=== PATIENT | female | born 1940 | race Hispanic/Latino ===

== ENCOUNTER → 2020-07-05 | Outpatient (CLI) | payer MEDICARE ==
[~2020-07-05] MED LIST: REGADENOSON 0.4 MG/5 ML SYR IV ONE
--- NOTE | 2020-07-06 10:08 | Myoview Stress Test ---
DATE OF STUDY: 07/05/2020 08:48:00 Stress Test - Treadmill ONLY PROCEDURE TITLE: Rest/stress single isotope SPECT imaging with pharmacologic stress and gated SPECT imaging. INDICATION: Coronary artery disease. PROCEDURE IN DETAIL: Pharmacologic stress testing was performed with regadenoson per protocol. The heart rate was 69 beats per minute at rest, increased to 109 beats per minute during the regadenoson infusion. The resting blood pressure was 134/64 mmHg and decreased to 124/56 mmHg, which is a normal response. The resting electrocardiogram demonstrated normal sinus rhythm. There were no ST-segment changes suggestive of myocardial ischemia. Myocardial perfusion imaging was performed at rest following the injection of 11 mCi of tetrofosmin. At peak pharmacologic effect, the patient was injected with 32.9 mCi of tetrofosmin. Gated post-stress tomographic imaging was performed. FINDINGS: The overall quality of study is fair. Left ventricular cavity is noted to be normal size on the rest and stress studies. SPECT images demonstrate homogeneous tracer distribution throughout the myocardium. Gated SPECT imaging reveals normal myocardial thickening and wall motion. The left ventricular ejection fraction was calculated to be greater than 70%. CONCLUSION: Myocardial perfusion imaging is normal. Overall, left ventricular systolic function was normal without regional wall motion abnormalities. Sonya Singh MD ABS/MODL /[id number]
== END ==
LOC: NM 08:31
PROVIDERS: ATTEND Internal Medicine
DX: Z01.818 Encounter for other preprocedural examination (principal)
CPT/HCPCS: 78452; 93017; 93306; A9502; J2785

== ENCOUNTER 2020-10-02 07:23 | Observation (INO) | payer MEDICARE, OTHER ==
--- NOTE | 2020-09-28 16:21 | Diagnostic Imaging Report ---
Chest, 2 views, 09/28/2020. History: Preop, humerus surgery. Comparison: None available. Findings: The patient is rotated. The cardiomediastinal silhouette and pulmonary vasculature are within normal limits. There is tortuosity of the descending thoracic aorta. The lungs are clear without evidence of consolidation or pleural effusion. Fracture of the left proximal humerus is noted. The bones are diffusely osteopenic. Degenerative changes are present throughout the thoracic spine. Impression: No acute cardiopulmonary abnormality. Proximal left humeral fracture. Signed by: Migue Eastman on 09/28/2020 4:18 PM
[2020-09-28 16:47] LABS: BASOPHILS % 0.2 % (0.0-1.0); EOSINOPHILS # (AUTO) 0.1 (0.0-0.4); EOSINOPHILS % 1.7 % (0.0-6.0); HEMATOCRIT 41.8 % (34.2-44.1); HEMOGLOBIN 13.5 g/dL (12.0-16.0); LYMPHOCYTES # (AUTO) 1.4 (1.0-3.2); LYMPHOCYTES % 17.3 % (18.0-39.1); MEAN CORPUSCULAR HEMOGLOBIN 29.9 pg (28-32); MEAN CORPUSCULAR HGB CONC 32.3 g/dL (31-35); MEAN CORPUSCULAR VOLUME 92.7 fL (81-99); MONOCYTES # (AUTO) 0.5 (0.2-0.8); MONOCYTES % 6.3 % (4.4-11.3); NEUTROPHILS # (AUTO) 6.1 (2.1-6.9); NEUTROPHILS % 74.3 % (38.7-80.0); PLATELET COUNT 210 x10e3/uL (140-360); RED BLOOD COUNT 4.51 x10e6/uL (3.6-5.1); RED CELL DISTRIBUTION WIDTH 13.7 % (11.7-14.4)
[2020-09-28 17:25] LABS: ANION GAP 15.3 mmol/L (8-16); BLOOD UREA NITROGEN 16 mg/dL (7-26); BUN/CREATININE RATIO 21 (6-25); CARBON DIOXIDE 26 mmol/L (22-29); CHLORIDE 105 mmol/L (98-107); CREATININE, SERUM 0.77 mg/dL (0.57-1.11); EST GLOMERULAR FILTRATION RATE > 60 ML/MIN (60-); GLUCOSE 139 mg/dL (74-118); POTASSIUM 4.3 mmol/L (3.5-5.1); SODIUM 142 mmol/L (136-145)
[~2020-10-02] VITALS: Ht 154.9 cm; Wt 63.0 kg
[~2020-10-02 07:23] MED LIST changes: +AMLODIPINE BESY10 MG PO; +GLIPIZIDE5 MG PO; +IBUPROFEN200 MG PO; +LOSARTAN POTAS100 MG PO; +METFORMIN HCL500 MG PO; +NAMENDA5 MG PO; +PRAVACHOL40 MG PO; -REGADENOSON 0.4 MG/5 ML SYR IV ONE
[2020-10-02] MEDS ORDERED: CEFAZOLIN SOD 1 GM/NS 50ML 50 ML IV ONE (08:13)
[2020-10-02] MEDS ORDERED: BUPIVACAINE HCL 0.5% INJ 30 ML VIAL INJ ONE (09:56)
[2020-10-02] MEDS ORDERED: ONDANSETRON HCL INJ 2MG/ML 2ML 2 MG/ML VIAL IV PRN (11:00)
[2020-10-02] MEDS ORDERED: HYDROCODONE/APAP 7.5MG-325MG 1 EA TAB PO PRN (11:00)
[2020-10-02] MEDS ORDERED: KETOROLAC TROMETHAMINE 30 MG/ML VIAL IV PRN (11:00)
[2020-10-02] MEDS ORDERED: ACETAMINOPHEN 650 MG SUPP PR PRN (11:00)
[2020-10-02] MEDS ORDERED: DIPHENHYDRAMINE HCL INJ 50 MG/ML VIAL IV PRN (11:00)
[2020-10-02] MEDS ORDERED: HYDROCODONE/APAP 5MG-325MG TAB PO PRN (11:00)
[2020-10-02] MEDS ORDERED: DOCUSATE SODIUM 100 MG CAP PO PRN (11:00)
[2020-10-02] MEDS ORDERED: ACETAMINOPHEN 1000 MG/100 ML 100 ML IV ONE (11:29)
[2020-10-02] MEDS ORDERED: FENTANYL CITRATE/PF 100MCG/2 ML INJ ONE ×2 (11:29→16:30)
--- NOTE | 2020-10-02 11:36 | Operative Report ---
DATE OF PROCEDURE: 10/02/2020 SURGEON: Mata Wells MD INTERNATIONAL ACCOUNT MANAGER: Alphonse Park PA-C. PREOPERATIVE DIAGNOSIS: Left proximal humerus fracture, nonunion. POSTOPERATIVE DIAGNOSIS: Left proximal humerus fracture, nonunion. PROCEDURE: Left proximal humerus debridement of nonunion with open reduction and internal fixation. INDICATION: The patient is a medically frail 79-year-old lady who has sustained a severe fracture of her left proximal humerus. This happened several months ago. She has some dementia and cannot remember exactly how this broke it. We have tried to treat this conservatively, but this has gone on to develop an obvious nonunion with gross motion. We have discussed the options and planned on open reduction with internal fixation. The risks and benefits were discussed with the family. They stated they understood and wished to proceed. PROCEDURE IN DETAIL: The patient was brought to the operating room and placed under general anesthetic. She was positioned on the shoulder table in the beach chair position. She received prophylactic antibiotics in the holding area. Her left upper extremity was prepped and draped in a sterile manner. A preoperative time-out was performed. An anterior incision was made. This extended midway down the left arm. Hemostasis was obtained with electrocautery. Self-retaining retractors were placed. The deltopectoral interval was identified. Gentle mobilization of the soft tissue was performed. Care was taken to avoid any injury to the neurovascular bundle. The fracture site was identified. Fibrous tissue was debrided from the site of the nonunion. This was partially excised. Time was spent taking to mobilize the two fracture fragments. Reduction clamps were placed. A Diaz and Nephew side specific proximal humerus plate was then templated on the arm. A nine-hole plate was chosen. A combination of compression cortical screws and locking screws were placed proximally and distally. Nice secure fixation was obtained. Intraoperative x-rays confirmed satisfactory reduction and positioning of all the hardware. The wound was thoroughly irrigated. A 5 mL of the DVX bone putty was then placed around the fracture site. The fascia was closed with interrupted 0 Vicryl. The skin was closed with 2-0 Vicryl and joan. A sterile bandage and a posterior splint were applied. Estimated blood loss was 100 mL. At the end of the procedure, all needle and sponge counts were correct. Mata Wells MD DR/MELANIE /[id number]
--- NOTE | 2020-10-02 11:45 | Diagnostic Imaging Report ---
OR Fluoroscopy: IMPRESSION: Fluoroscopy service provided in the OR. Interpretation not requested. Signed by: Stewart Whitaker MD on 10/02/2020 11:41 AM
[2020-10-02 14:51] VITALS: BP 120/43
[2020-10-02 15:25] VITALS: BP 120/43
[2020-10-02] MEDS: SODIUM CHLORIDE 0.9% 1000ML 1,000 ML IV SCH ×2 (15:30→21:00)
[2020-10-02 15:34] VITALS: BP 130/66
--- NOTE | 2020-10-02 15:48 | NUR ---
RECEIVED REPORT FROM SEBAS ARREOLA. PATIENT ARRIVED TO THE UNIT @ 1412 VIA STRETCHER FROM RECOVERY. PATIENT IN STABLE CONDITION, NO S/S OF DISTRESS NOTED. ABLE TO VOICE NEEDS THAI SPEAKER. DAUGHTER AT BEDSIDE. RESPIRATIONS EVEN AND NONLABORED. IV SITE ASYMPTOMATIC AND PATENT, TRANSPARENT DRESSING C/D/I. SCDs APPLIED. MARTHA WRAP NOTED TO THE LEFT ARM C/D/I. BED ALARM APPLIED. BED IN LOWEST POSITION AND LOCKED, SIDE RAILS X 2, NONSKID SOCKS APPLIED. CALL LIGHT WITHIN REACH.
[2020-10-02] MEDS ORDERED: ACETAMINOPHEN 1000 MG/100 ML IV PRN (16:00)
--- NOTE | 2020-10-02 16:08 | NUR ---
SPOKE WITH ALETA AT DR WELLS OFFICE NO HOME HEALTH OR DME NEEDED FOR DISCHARGE.
[2020-10-02] MEDS: CEFAZOLIN SOD 1 GM/NS 50ML 50 ML IV SCH (17:17)
[2020-10-02] MEDS: CELECOXIB 100 MG CAP PO SCH (17:17)
[2020-10-02] MEDS: ASPIRIN 325 MG TAB PO SCH (17:17)
[2020-10-02] MEDS ORDERED: PROPOFOL IV EMULSION 10 MG/ML 20 ML VIAL ONE (17:29)
[2020-10-02] MEDS ORDERED: LIDOCAINE HCL 2% LOCAL INJ 5 ML SDV VIAL INJ ONE (17:29)
[2020-10-02] MEDS ORDERED: ROCURONIUM BROMIDE 10 MG/ML 5ML VIAL IV ONE (17:29)
[2020-10-02] MEDS ORDERED: KETOROLAC TROMETHAMINE 30 MG/ML VIAL ONE (17:29)
[2020-10-02] MEDS ORDERED: DEXAMETHASONE SOD PHOS INJ 4 MG/ML VIAL ONE (17:29)
[2020-10-02] MEDS ORDERED: SEVOFLURANE INHAL SOLN 250 ML PEN BTL ONE (17:29)
[2020-10-02] MEDS ORDERED: ONDANSETRON HCL INJ 2MG/ML 2ML 2 MG/ML VIAL ONE (17:29)
[2020-10-02] MEDS ORDERED: LORAZEPAM INJ 2 MG/ML VIAL IV PRN (18:30)
--- NOTE | 2020-10-02 19:00 | NUR ---
RECEIVED PATIENT IN BEDSIDE SHIFT REPORT. PATIENT A&OX1, FAMILY MEMBER AT BEDSIDE TO ASSIST PATIENT. PRIOR TO SHIFT, PATIENT MOVED TO ROOM NEXT TO NURSES STATION. BED ALARM ACTIVE. PATIENT REFUSING SCDS. PATIENT TOLERATING PO, SO SALINE LOCKED. R HAND 22G ASYMPTOMATIC. BED LOCKED IN LOWEST POSITION, SIDE RAILS UPX2, CALL LIGHT IN REACH.
--- NOTE | 2020-10-02 19:04 | NUR ---
COMPLETED BEDSIDE SHIFT REPORT AND ROUNDING WITH THE ONCOMING NIGHT NURSE. PATIENT IN STABLE CONDITION, NO S/S OF DISTRESS NOTED. ABLE TO VOICE NEEDS WOLOF SPEAKER. RESPIRATIONS EVEN AND NONLABORED. IV SITE ASYMPTOMATIC AND PATENT, TRANSPARENT DRESSING C/D/I. MARTHA WRAP NOTED TO THE LEFT ARM C/D/I. BED ALARM APPLIED. DAUGHTER AT BEDSIDE. BED IN LOWEST POSITION AND LOCKED, SIDE RAILS X 2, NONSKID SOCKS APPLIED. CALL LIGHT WITHIN REACH.
[2020-10-02 20:20] VITALS: BP 117/67
[2020-10-02 20:21] VITALS: BP 117/67
[2020-10-02] MEDS ORDERED: ZOLPIDEM TARTRATE 5 MG TAB PO PRN (21:00)
[2020-10-02] MEDS ORDERED: DEXTROSE 50% SYRINGE 50 ML IV PRN (21:30)
[2020-10-02] MEDS: INSULIN LISPRO 100 UNIT/1 ML 3ML VIAL SQ SCH (21:45)
[2020-10-03 00:11] VITALS: BP 132/59
[2020-10-03] MEDS: CEFAZOLIN SOD 1 GM/NS 50ML 50 ML IV SCH ×2 (00:15→08:02)
[2020-10-03 04:42] VITALS: BP 126/56
[2020-10-03 05:09] LABS: HEMATOCRIT 31.6 % (34.2-44.1); HEMOGLOBIN 10.4 g/dL (12.0-16.0)
--- NOTE | 2020-10-03 06:34 | Consultation ---
DATE OF CONSULTATION: REASON FOR CONSULTATION: Postop medical management. HISTORY OF PRESENT ILLNESS: The patient is a 79-year-old lady, who is status post left humeral fracture repair, who postoperatively had some issues with some increased agitation, possible sundowning, who has a history of dementia, but currently right now, she has her daughter by the bedside and she seems to be doing much better. PAST MEDICAL HISTORY: Significant for diabetes, dementia, hyperlipidemia, hypertension. MEDICATIONS: See MAR. ALLERGIES: NONE. SOCIAL HISTORY: Nonsmoker and nondrinker. . Retired. FAMILY HISTORY: Noncontributory. PHYSICAL EXAMINATION: VITAL SIGNS: Temperature 97.6, pulse 80, blood pressure 126/56, sats 99% on room air. GENERAL: No apparent distress, lying in bed. NECK: Supple. CARDIOVASCULAR: Regular rate and rhythm. LUNGS: Clear to auscultation bilaterally. ABDOMEN: Good bowel sounds. Soft, nontender. EXTREMITIES: No clubbing or cyanosis. Left arm is in sling. NEUROLOGIC: Nonfocal. Moves all extremities x4. She is alert, appears to be oriented. ASSESSMENT/PLAN: 1. Dementia with possible sundowning, appears to be getting much better, so I instructed the family to stay at her bedside. Usually, it resolves on its own, but we will restart her Namenda. 2. Left humeral fracture repair. Continue postoperative care. 3. Diabetes. Continue current care and monitoring. 4. Hyperlipidemia. We will restart cholesterol medicine. 5. Hypertension. We will restart her blood pressure medicines. Please see hospital chart for full details. MD SHEILA Moore/MELANIE /[id number]
[2020-10-03] MEDS: SODIUM CHLORIDE 0.9% 1000ML 1,000 ML IV SCH (07:00)
--- NOTE | 2020-10-03 07:00 | NUR ---
ASSUMED CARE. AWAKE AND ALERT. RESTING IN BED. NO DISTRESS NOTED. CALL LIGHT IN REACH. SIDE RAILS UP X2. BED LOW AND LOCKED. DAUGHTER PRESENT AT BEDSIDE.
[2020-10-03] MEDS: INSULIN LISPRO 100 UNIT/1 ML 3ML VIAL SQ SCH (07:30)
[2020-10-03 08:00] VITALS: BP 129/56
[2020-10-03] MEDS: ASPIRIN 325 MG TAB PO SCH (08:02)
[2020-10-03] MEDS: CELECOXIB 100 MG CAP PO SCH (08:02)
--- NOTE | 2020-10-03 08:04 | NUR ---
PATIENT'S DAUGHTER AT BEDSIDE AND REFUSED NAMENDA ADMINISTRATION PER PHYSICIAN'S ORDER. "I NORMALLY GIVE THIS MEDICATION TO HER AT NOON. I WANT HER TO HAVE IT AT NOON INSTEAD." EDUCATION PROVIDED. RE-ENFORCEMENT NEEDED.
[2020-10-03 08:57] VITALS: BP 129/56
[2020-10-03] MEDS ORDERED: LOSARTAN POTASSIUM 100 MG TAB PO SCH (09:00)
[2020-10-03] MEDS ORDERED: MEMANTINE 10 MG TAB PO SCH (09:00)
[2020-10-03] MEDS ORDERED: SIMVASTATIN 20 MG TAB PO SCH ×2 (09:00→21:00)
[2020-10-03 12:00] VITALS: BP 123/59
[2020-10-03] MEDS ORDERED: ONDANSETRON HCL 4 MG ORAL DISINTEGRATING TAB PO PRN (12:30)
[2020-10-03] MEDS ORDERED: CELECOXIB 200 MG CAP PO SCH (17:00)
[2020-10-03] MEDS ORDERED: AMLODIPINE BESYLATE 10 MG TAB PO SCH (21:00)
--- OUTSIDE RECORDS SUMMARY | 2020-10-04 19:03 | XMS REPORT | Continuity of Care Document ---
Author Author [facility] t Organization [facility] Address [address] [place] [address] Phone Unavailable Care Team Providers Care Tower Director Name Role Phone ROXI WELLS Attphys Unavailable Bisi SINGH Attphys Unavailable CHRISTIAN HOLLAND Admphyleslie Unavailable Payers Payer Name Policy Type Policy Number Effective Date Expiration Date S ource Problems This patient has no known problems. Allergies, Adverse Reactions, Alerts Allergy Name Allergy Type Status Severity Reaction(s) Onset Date Inacti ve Date Treating Clinician Comments Source No Known Allergies DA Active U 2018-10-12 00:00:00 [facility] No Known Contrast Allergies DA Active U 2009-01-05 00:00: 00 [facility] No Known Drug Allergies DA Active U 2009-01-05 00:00:00 [facility] No Known Food Allergies DA Active U 2009-01-05 00:00:00 [facility] No Known Other Allergies DA Active U 2009-01-05 00:00:00 [facility] Medications This patient has no known medications. Procedures This patient has no known procedures. Results Test Description Test Time Test Comments Results Result Comments Source FLURO UP TO 1 HR-GENERAL 2020-10-02 11[facility]41:00 [facility] 1940 Sex: F [address] [address] Patient Name: LYNSEY BERGMAN MR #: [id number] : 1940 Age/Sex: 79/F Req #: [id number] Adm Physician: Ordered by: ROXI WELLS MD Report #: [id number] Location: OR Room/Bed: Procedure: [id number] DX/FLURO UP TO 1 HR-GENERAL Exam Date: 10/02/20 Exam Time: 911 REPORT STATUS: Signed OR Fluoroscopy: IMPRESSION: Fluoroscopy service provided in the OR. Interpretation not requested. Signed by: Vannesa Bautista MD on 10/02/2020 11:41 AM Dictated By: VANNESA BAUTISTA MD 1141 Transcribed By: TINO on 10/02/20 1141 COPY TO: ROXI WELLS MD CHEST 2 VIEWS 2020-09-28 16:17:00 [facility] : 1940 Sex: F [place] [address] Patient Name: LYNSEY BERGMAN MR #: [id number] : 1940 Age/Sex: 79/F Req #: [id number] Adm Physician: Ordered by: ROXI WELLS MD Report #: [id number] Location: OR Room/Bed: Procedure: [id number] DX/CHEST 2 VIEWS Exam Date: 09/28/20 Exam Time: 1550 REPORT STATUS: Signed Chest, 2 views, 09/28/2020. History: Preop, humerus surgery. Comparison: None available. Findings: The patient is rotated. The cardiomediastinal silhouette and pulmonary vasculature are within normal limits. There is tortuosity of the de scending thoracic aorta. The lungs are clear without evidence of consolidation or pleural effusion. Fracture of the left proximal humerus is noted. The bones are diffusely osteopenic. Degenerative changes are present throughout the thoracic spine. Impression: No acute cardiopulmonary abnormality. Proximal left humeral fracture. Signed by: Migue Eastman on 09/28/2020 4:18 PM Dictated By: MIGUE EASTMAN MD 17 Transcribed By: TINO on 09/28/201617 COPY TO: ROXI WELLS MD Stress Test - Treadmill ONLY 2020-07-05 14:55:00 [place] [address] Patient Name : LYNSEY BERGMAN MR #: [id number] : 1940 Age/Sex: 79/F Adm Physician : SONYA SINGH MD Admit Date : 07/05/20 Location : [place] Room/Bed : REPORT: Myoview Stress Test DATE OF STUDY: 07/05/2020 08:48:00 Stress Test - Treadmill ONLY PROCEDURE TITLE: Rest/stress single isotope SPECT imaging with pharmacologic stress and gated SPECT imaging. INDICATION: Coronary artery disease. PROCEDURE IN DETAIL: Pharmacologic stress testing was performed with regadenoson per protocol. The heart rate was 69 beats per minute at rest, increased to 109 beats per minute during the regadenoson infusion. The resting blood pressure was 134/64 mmHg and decreased to 124/56 mmHg, which is a normal response. The resting electrocardiogram demonstrated normal sinus rhythm. There were no ST-segment changes suggestive of myocardial ischemia. Myocardial perfusion imaging was performed at rest following the injection of 11 mCi of tetrofosmin. At peak pharmacologic effect, the patient was injected with 32.9 mCi of tetrofosmin. Gated post-stress tomographic imaging was performed. FINDINGS: The overall quality of study is fair. Left ventricular cavity is noted to be normal size on the rest and stress studies. SPECT images demonstrate homogeneous tracer distribution throughout the myocardium. Gated SPECT imaging reveals normal myocardial thickening and wall motion. The left ventricular ejection fraction was calculated to be greater than 70%. CONCLUSION: Myocardial perfusion imaging is normal. Overall, left ventricular systolic function was normal without regional wall motion abnormalities. Sonya Singh MD ABS/MODL /[id number] Signature Date Dictated By: SONYA SINGH MD Transcribed By: MODL on 07/05/20 <Electronically signed by SONYA SINGH MD><<Signature on File>>07/27/20 1048 COPY TO:
== END 2020-10-03 12:58 | disposition home or self-care (01) ==
LOC: OR 07:23 → PACU V 10:48 → MED/SURG 14:24
PROVIDERS: ADMIT Specialist; ATTEND Specialist
DX: S42.242A 4-part fracture of surgical neck of left humerus, initial encounter for closed fracture (principal); F03.90 Unspecified dementia, unspecified severity, without behavioral disturbance, psychotic disturbance, mood disturbance, and anxiety; F05 Delirium due to known physiological condition; Z11.59 Encounter for screening for other viral diseases; I10 Essential (primary) hypertension; E11.9 Type 2 diabetes mellitus without complications
CPT/HCPCS: 24430; 36415 ×3; 71046; 76000; 80048; 82948 ×2; 85014; 85018; 85025; 93005; 96372; 97116 ×2; 97161; 97530; C1713; G0378 ×2; J0131; J0690 ×2; J1100; J1885; J2001; J2060; J2405; J2704; J3010; J7030; U0002

== ENCOUNTER 2023-02-24 20:13 | Emergency (ER) | payer MEDICARE ==
[~2023-02-24] VITALS: Ht 154.9 cm; Wt 63.0 kg
[2023-02-24] MEDS ORDERED: TRAMADOL HCL 50 MG TAB PO STA (20:30)
[2023-02-24] MEDS ORDERED: ULTRAM 50MG50 MG PO (22:56)
[2023-02-24 23:15] VITALS: BP 121/84
== END 2023-02-24 23:00 | disposition home or self-care (01) ==
LOC: ER 20:22
DX: R50.9 Fever, unspecified (principal); M71.561 Other bursitis, not elsewhere classified, right knee; M25.461 Effusion, right knee
CPT/HCPCS: 99284

== ENCOUNTER 2025-02-01 10:21 | Inpatient (IN) | payer MEDICARE ==
[~2025-02-01] VITALS: Ht 149.9 cm; Wt 57.2 kg
[2025-02-01] VITALS (9 sets, daily range): BP systolic 113–144; BP diastolic 77–87; PULSE 68–127; RESP 16–21; TEMP 97.1–98.4; O2SAT 96–100
[~2025-02-01 10:21] MED LIST changes: +ULTRAM 50MG50 MG PO
[2025-02-01] MEDS: SODIUM CHLORIDE 0.9% 1000ML 1,000 ML IV STA (11:42)
[2025-02-01] MEDS: DIGOXIN INJ 0.25 MG/ML 2 ML AMP IV STA (11:43)
[2025-02-01] MEDS: METOPROLOL TARTRATE INJ 1 MG/ML VIAL IV STA (11:46)
[2025-02-01 11:49] LABS: BASOPHILS % 0.2 % (0.0-1.0); EOSINOPHILS # (AUTO) 0.1 (0.0-0.4); EOSINOPHILS % 0.9 % (0.0-6.0); HEMATOCRIT 39.9 % (34.2-44.1); HEMOGLOBIN 13.3 g/dL (12.0-16.0); LYMPHOCYTES # (AUTO) 0.7 (1.0-3.2); LYMPHOCYTES % 6.9 % (18.0-39.1); MEAN CORPUSCULAR HEMOGLOBIN 30.6 pg (28-32); MEAN CORPUSCULAR HGB CONC 33.3 g/dL (31-35); MEAN CORPUSCULAR VOLUME 91.7 fL (81-99); MONOCYTES # (AUTO) 0.7 (0.2-0.8); MONOCYTES % 6.4 % (4.4-11.3); NEUTROPHILS % 85.1 % (38.7-80.0); PLATELET COUNT 240 x10e3/uL (140-360); RED BLOOD COUNT 4.35 x10e6/uL (3.6-5.1); RED CELL DISTRIBUTION WIDTH 13.4 % (11.7-14.4); WHITE BLOOD COUNT 10.56 x10e3/uL (4.8-10.8)
[2025-02-01] MEDS: DILTIAZEM HCL 5 MG/ML 5 ML VIAL IV STA (11:51)
[2025-02-01 12:04] LABS: ALBUMIN 3.3 g/dL (3.5-5.0); ALBUMIN/GLOBULIN RATIO 0.9 (0.8-2.0); ANION GAP 14.9 mmol/L (8-16); CALCIUM 9.6 mg/dL (8.4-10.2); CREATININE, SERUM 0.94 mg/dL (0.57-1.11); POTASSIUM 3.9 mmol/L (3.5-5.1); TOTAL PROTEIN 6.8 g/dL (6.5-8.1)
[2025-02-01 12:11] LABS: INFLUENZA A AG NEGATIVE (NEGATIVE); TROPONIN I 0.007 ng/mL (0-0.300)
[2025-02-01 12:12] LABS: CORONAVIRUS COVID-19 AG NEGATIVE (NEGATIVE); INFLUENZA B AG NEGATIVE (NEGATIVE)
[2025-02-01] MEDS ORDERED: ONDANSETRON HCL INJ 2MG/ML 2ML 2 MG/ML VIAL IV PRN (12:15)
[2025-02-01] MEDS ORDERED: METOPROLOL SUCCINATE 25 MG TAB XL PO SCH (20:00)
[2025-02-01] MEDS: METOPROLOL TARTRATE 25 MG TAB PO SCH (20:00)
[2025-02-02] VITALS (9 sets, daily range): BP systolic 84–136; BP diastolic 52–108; PULSE 75–151; RESP 18–21; TEMP 97.4–98.4; O2SAT 93–100
[2025-02-02] MEDS: SODIUM CHLORIDE 0.9% 1000ML 1,000 ML IV SCH (03:03)
[2025-02-02] MEDS ORDERED: DEXTROSE 50% SYRINGE 50 ML IV PRN (04:30)
[2025-02-02] MEDS: METOPROLOL TARTRATE INJ 1 MG/ML VIAL IV PRN (04:54)
[2025-02-02] MEDS: TRAMADOL HCL 50 MG TAB PO SCH (06:00)
[2025-02-02 06:38] LABS: BASOPHILS % 0.3 % (0.0-1.0); EOSINOPHILS # (AUTO) 0.2 (0.0-0.4); EOSINOPHILS % 2.2 % (0.0-6.0); HEMATOCRIT 42.1 % (34.2-44.1); HEMOGLOBIN 13.9 g/dL (12.0-16.0); LYMPHOCYTES % 9.8 % (18.0-39.1); MEAN CORPUSCULAR HEMOGLOBIN 30.5 pg (28-32); MEAN CORPUSCULAR VOLUME 92.3 fL (81-99); MONOCYTES # (AUTO) 0.7 (0.2-0.8); MONOCYTES % 6.5 % (4.4-11.3); NEUTROPHILS # (AUTO) 8.4 (2.1-6.9); NEUTROPHILS % 80.9 % (38.7-80.0); PLATELET COUNT 241 x10e3/uL (140-360); RED BLOOD COUNT 4.56 x10e6/uL (3.6-5.1); RED CELL DISTRIBUTION WIDTH 13.2 % (11.7-14.4); WHITE BLOOD COUNT 10.39 x10e3/uL (4.8-10.8)
[2025-02-02 07:06] LABS: ALBUMIN 3.2 g/dL (3.5-5.0); ALBUMIN/GLOBULIN RATIO 0.9 (0.8-2.0); ANION GAP 15.1 mmol/L (8-16); BILIRUBIN,TOTAL 1.1 mg/dL (0.2-1.2); CALCIUM 9.7 mg/dL (8.4-10.2); CREATININE, SERUM 0.8 mg/dL (0.57-1.11); POTASSIUM 4.1 mmol/L (3.5-5.1); TOTAL PROTEIN 6.9 g/dL (6.5-8.1)
[2025-02-02 07:33] LABS: CHOL/HDL RATIO 2.2 (3.0-3.6)
[2025-02-02 07:41] LABS: TROPONIN I 0.015 ng/mL (0-0.300)
[2025-02-02] MEDS: MEMANTINE 10 MG TAB PO SCH (09:00)
[2025-02-02] MEDS: INSULIN REGULAR, HUMAN 100 UNIT/1 ML SQ SCH (09:21)
[2025-02-02] MEDS: LORAZEPAM INJ 2 MG/ML VIAL IV PRN (12:38)
[2025-02-02] MEDS: SIMVASTATIN 20 MG TAB PO SCH (12:39)
[2025-02-02] MEDS: AMIODARONE HCL 200 MG TAB PO SCH (12:40)
[2025-02-02] MEDS: LOSARTAN POTASSIUM 100 MG TAB PO SCH (12:41)
[2025-02-02 14:45] LABS: TROPONIN I 0.009 ng/mL (0-0.300)
[2025-02-02] MEDS ORDERED: SODIUM CHLORIDE 0.9% 250ML 250 ML IV SCH (18:00)
[2025-02-02] MEDS: AMLODIPINE BESYLATE 10 MG TAB PO SCH (21:00)
[2025-02-02] MEDS: SODIUM CHLORIDE 0.9% 250ML 250 ML IV ONE (21:58)
[2025-02-03] VITALS (7 sets, daily range): BP systolic 107–164; BP diastolic 83–93; PULSE 85–135; RESP 18–20; TEMP 97.4–98.8; O2SAT 94–98
[2025-02-03 07:20] LABS: BASOPHILS % 0.3 % (0.0-1.0); EOSINOPHILS # (AUTO) 0.3 (0.0-0.4); EOSINOPHILS % 2.6 % (0.0-6.0); HEMATOCRIT 39.8 % (34.2-44.1); HEMOGLOBIN 13.1 g/dL (12.0-16.0); LYMPHOCYTES % 10.6 % (18.0-39.1); MEAN CORPUSCULAR HEMOGLOBIN 30.6 pg (28-32); MEAN CORPUSCULAR HGB CONC 32.9 g/dL (31-35); MONOCYTES # (AUTO) 0.7 (0.2-0.8); MONOCYTES % 7.5 % (4.4-11.3); NEUTROPHILS # (AUTO) 7.7 (2.1-6.9); NEUTROPHILS % 78.7 % (38.7-80.0); PLATELET COUNT 240 x10e3/uL (140-360); RED BLOOD COUNT 4.28 x10e6/uL (3.6-5.1); RED CELL DISTRIBUTION WIDTH 13.3 % (11.7-14.4); WHITE BLOOD COUNT 9.75 x10e3/uL (4.8-10.8)
[2025-02-03 07:39] LABS: ANION GAP 13.2 mmol/L (8-16); CREATININE, SERUM 0.77 mg/dL (0.57-1.11); POTASSIUM 4.2 mmol/L (3.5-5.1)
[2025-02-03] MEDS: DIGOXIN INJ 0.25 MG/ML 2 ML AMP IV ONE (18:05)
[2025-02-03] MEDS: METOPROLOL TARTRATE 25 MG TAB PO SCH (20:52)
[2025-02-04] VITALS (9 sets, daily range): BP systolic 90–145; BP diastolic 66–115; PULSE 62–143; RESP 19–21; TEMP 97.4–98.8; O2SAT 95–99
[2025-02-04 06:33] LABS: BASOPHILS % 0.3 % (0.0-1.0); EOSINOPHILS # (AUTO) 0.2 (0.0-0.4); EOSINOPHILS % 1.7 % (0.0-6.0); HEMOGLOBIN 12.8 g/dL (12.0-16.0); LYMPHOCYTES # (AUTO) 0.7 (1.0-3.2); LYMPHOCYTES % 6.8 % (18.0-39.1); MEAN CORPUSCULAR HEMOGLOBIN 30.2 pg (28-32); MEAN CORPUSCULAR HGB CONC 32.8 g/dL (31-35); MONOCYTES # (AUTO) 0.9 (0.2-0.8); MONOCYTES % 8.5 % (4.4-11.3); NEUTROPHILS % 82.2 % (38.7-80.0); PLATELET COUNT 208 x10e3/uL (140-360); RED BLOOD COUNT 4.24 x10e6/uL (3.6-5.1); WHITE BLOOD COUNT 10.88 x10e3/uL (4.8-10.8)
[2025-02-04 06:45] LABS: ANION GAP 13.2 mmol/L (8-16); CALCIUM 8.9 mg/dL (8.4-10.2); CREATININE, SERUM 0.66 mg/dL (0.57-1.11); POTASSIUM 4.2 mmol/L (3.5-5.1)
[2025-02-04] MEDS: SODIUM BICARBONATE 650 MG TAB PO SCH (11:52)
[2025-02-04] MEDS: SODIUM BICARBONATE 650 MG TAB ONE (13:33)
[2025-02-04] MEDS: SENNOSIDES 8.6 MG TAB PO SCH (17:38)
[2025-02-04] MEDS: SENNOSIDES 8.6 MG TAB ONE (17:49)
[2025-02-04] MEDS: DOCUSATE SODIUM 100 MG CAP PO SCH (22:14)
[2025-02-05] VITALS: BP 115/87; PULSE 78; RESP 20; TEMP 97.7; O2SAT 98
[2025-02-05 04:00] VITALS: BP 114/75; PULSE 72; RESP 17; TEMP 98.5; O2SAT 98
[2025-02-05 09:20] VITALS: BP 119/57; PULSE 79; RESP 20; TEMP 98.1; O2SAT 95
[2025-02-05 10:39] VITALS: BP 119/57; PULSE 79; RESP 20; TEMP 98.1; O2SAT 95
[2025-02-05 11:42] LABS: BILIRUBIN,URINE NEGATIVE (NEGATIVE); CLARITY,URINE SL CLOUDY (CLEAR); COLOR,URINE YELLOW (YELLOW); GLUCOSE, URINE NEGATIVE (NEGATIVE); KETONES,URINE 2+ (NEGATIVE); LEUKOCYTE ESTERASE ,URINE LARGE (NEGATIVE); NITRITE,URINE NEGATIVE (NEGATIVE); PH,URINE 6.5 (5 - 7); PROTEIN,URINE DIPSTICK 1+ (NEGATIVE); URINE UROBILINOGEN 2 mg/dL (0.2 - 1)
[2025-02-05 11:45] LABS: AMORPHOUS SEDIMENT,URINE FEW; BACTERIA,URINE MANY /HPF; EPITHELIAL CELLS,URINE FEW /LPF; MUCUS,URINE MODERATE; WBC,URINE (MAN) 21-50 /HPF (0-5)
[2025-02-05 18:44] VITALS: BP 160/61; PULSE 89; RESP 20; TEMP 98.1; O2SAT 100
[2025-02-05 20:00] VITALS: BP 90/37; PULSE 76; RESP 18; TEMP 98
[2025-02-06] VITALS (7 sets, daily range): BP systolic 90–160; BP diastolic 37–112; PULSE 71–93; RESP 18–20; TEMP 97.3–98.4; O2SAT 97–100
[2025-02-06] MEDS ORDERED: SENOKOT8.6 MG PO (09:12)
[2025-02-06] MEDS ORDERED: AMIODARONE HCL200 MG PO (09:12)
[2025-02-06] MEDS ORDERED: CEPHALEXIN500 MG PO (09:12)
[2025-02-06] MEDS ORDERED: LOPRESSOR25 MG PO (09:12)
[2025-02-06] MEDS ORDERED: SODIUM BICARBO650 MG PO (09:12)
[2025-02-06] MEDS ORDERED: FUROSEMIDE20 MG PO (09:17)
[2025-02-06] MEDS: FUROSEMIDE INJ 10 MG/ML 2 ML VIAL IV SCH (09:30)
== END 2025-02-06 21:00 | disposition home or self-care (01) | DRG 536 ==
LOC: ER 10:26 → ERHOLD 12:13 → MED/SURG3 13:20
PROVIDERS: ADMIT Internal Medicine; ATTEND Internal Medicine
DX: S72.091A Other fracture of head and neck of right femur, initial encounter for closed fracture (principal); R64 Cachexia; I48.20 Chronic atrial fibrillation, unspecified; N39.0 Urinary tract infection, site not specified; I31.39 Other pericardial effusion (noninflammatory); G30.9 Alzheimer's disease, unspecified; F02.80 Dementia in other diseases classified elsewhere, unspecified severity, without behavioral disturbance, psychotic disturbance, mood disturbance, and anxiety; E78.5 Hyperlipidemia, unspecified; E11.9 Type 2 diabetes mellitus without complications; K74.60 Unspecified cirrhosis of liver; I11.9 Hypertensive heart disease without heart failure; K57.90 Diverticulosis of intestine, part unspecified, without perforation or abscess without bleeding; W19.XXXA Unspecified fall, initial encounter; Y92.009 Unspecified place in unspecified non-institutional (private) residence as the place of occurrence of the external cause; Z91.81 History of falling; Z11.52 Encounter for screening for COVID-19; Z79.84 Long term (current) use of oral hypoglycemic drugs; Z79.1 Long term (current) use of non-steroidal anti-inflammatories (NSAID)
CPT/HCPCS: 36415; 51700; 70450; 71250; 72125; 74176; 80048; 80053; 80061; 81001; 82550; 82948; 83036; 83880; 84484; 85025; 93005; 93306; 94799; 99252; 99284; J0696; J1160; J2060; J7030

== ENCOUNTER 2025-03-01 07:35 | Outpatient (RCR) | payer MEDICARE ==
[~2025-03-01 07:35] MED LIST changes: +AMIODARONE HCL200 MG PO; +CEPHALEXIN500 MG PO; +FUROSEMIDE20 MG PO; +LOPRESSOR25 MG PO; +SENOKOT8.6 MG PO; +SODIUM BICARBO650 MG PO
== END 2025-03-29 ==
LOC: PT 07:35
PROVIDERS: ATTEND Internal Medicine
DX: M25.551 Pain in right hip (principal); S72.091A Other fracture of head and neck of right femur, initial encounter for closed fracture